=== PATIENT | male | born 1945 | race Caucasian/White ===

== ENCOUNTER 2018-04-19 08:12 | Outpatient (CLI) | payer BC ==
--- NOTE | 2018-04-19 12:45 | NM ---
NUCLEAR MEDICINE CARDIAC STRESS TEST AND EJECTION FRACTION: HISTORY: Chest pain unspecified. COMPARISON: None. FINDINGS: Stress and rest performed after the intravenous administration of 30 and 10 mCi Technetium 99m sestam ibi intravenously, respectively. There is adequate left ventricular uptake of radiotracer. Normal wall motion. No scar or ischemia. The calculated ejection fraction is 57%. IMPRESSION: Normal nuclear medicine cardiac stress and ejection fraction. POS: [place]
== END 2018-04-19 08:13 | disposition home or self-care (01) ==
LOC: NM 08:12
PROVIDERS: ATTEND Internal Medicine
DX: R07.9 Chest pain, unspecified (principal)
CPT/HCPCS: 78452; 93017; A9500; J0153